=== PATIENT | male | born 1990 | race Caucasian/White ===

== ENCOUNTER 2017-07-28 03:17 | Emergency (ER) | payer OTHER ==
[2017-07-28 04:03] VITALS: TEMP 98.3; BMI 25.0
[2017-07-28 04:34] LABS: BASO # 0.1 # (0.1-1); BASO % 0.7 % (0-2.0); EOS # 0.3 # (0-4.5); EOS % 2.5 % (0-4.5); LYMPH # 3.3 (8-40); MCH 29.7 pg (25.7-33.7); MCHC 33.4 g/dl (32.0-35.9); MEAN CELL VOLUME 88.9 fl (80-96); MEAN PLT VOLUME 8.7 fl (7.5-11.1); MONO # 1.3 # (3.8-10.2); NEUT # 6.6 # (42.8-82.8); PLATELET COUNT 328 K/MM3 (134-434); WHITE BLOOD COUNT 11.7 K/mm3 (4.0-10.0)
--- NOTE | 2017-07-28 04:44 | PDOC ---
History of Present Illness - General Chief Complaint: Chest Pain Stated Complaint: CHEST DISCOMFORT Time Seen by Provider: 07/28/17 03:30 - History of Present Illness Initial Comments: 07/28/17 04:24 Pt is a 27 M with no significant PMH who presents to ED with chest pain. Pt states this pain is sharp and nonradiating. It has been ongoing for 1 hour. Pt states he's had this pain before, but it usually lasts 2-3 sec. The pain is not associated with activity. Pt states it usually occurs when he's lying down in bed at night and that it happens abut once per week. Notably, pt has seen Dr. Bryan as an outpt for the same complaint. Pt states he had a property assessment monitor placed for 2 weeks and had a cardiac echo done but does not have the results of either study yet. He came to ED tonight because the pain typically lasts a few seconds and has been persistent tonight. Past History - Past Medical History Allergies/Adverse Reactions: Allergies Allergy/AdvReac Type Severity Reaction Status Date / Time No Known Allergies Allergy Verified 07/28/17 04:00 COPD: No - Suicide/Smoking/Psychosocial Hx Smoking History: Never smoked Have you smoked in the past 12 months: No Information on smoking cessation initiated: No Hx Alcohol Use: No Drug/Substance Use Hx: No Review of Systems - Review of Systems Able to Perform ROS?: Yes Is the patient limited Georgian proficient: No Constitutional: Yes: Symptoms Reported. No: Chills, Diaphoresis, Fever, Night Sweats, Weakness HEENTM: Yes: Symptoms Reported. No: Blurred Vision, Double Vision Respiratory: Yes: Symptoms reported. No: Cough, Orthopnea, Shortness of Breath , Stridor, Wheezing Cardiac (ROS): Yes: Symptoms Reported, Chest Pain, Palpitations (occasional. Not associated with this event). No: Edema, Irregular Heart Rate, Syncope, Chest Tightness ABD/GI: Yes: Symptoms Reported. No: Abdominal Distended, Constipated, Diarrhea , Poor Fluid Intake : Yes: Symptoms Reported. No: Burning, Dysuria, Discharge Musculoskeletal: Yes: Symptoms Reported. No: Back Pain, Joint Pain Integumentary: Yes: Symptoms Reported. No: Erythema, Flushing Neurological: Yes: Symptoms reported. No: Headache, Numbness, Tingling, Tremors *Physical Exam - Vital Signs Last Vital Signs Temp Pulse Resp BP Pulse Ox 98.3 F 75 16 126/73 100 07/28/17 04:01 07/28/17 04:01 07/28/17 04:01 07/28/17 04:01 07/28/17 04:01 - Physical Exam General Appearance: Yes: Nourished, Appropriately Dressed. No: Apparent Distress HEENT: positive: EOMI, BRAN, Normal ENT Inspection, Normal Voice, Pharynx Normal. negative: Pale Conjunctivae Neck: positive: Trachea midline, Normal Thyroid, Supple. negative: Tender, Carotid bruit Respiratory/Chest: positive: Lungs Clear, Normal Breath Sounds. negative: Chest Tender, Respiratory Distress, Accessory Muscle Use Cardiovascular: positive: Regular Rhythm, Regular Rate, S1, S2. negative: Edema , JVD, Murmur Vascular Pulses: Dorsalis-Pedis (R): 2+, Doralis-Pedis (L): 2+ Gastrointestinal/Abdominal: positive: Normal Bowel Sounds, Flat, Soft. negative : Tender, Organomegaly Musculoskeletal: positive: Normal Inspection. negative: CVA Tenderness Extremity: positive: Normal Capillary Refill, Normal Inspection, Normal Range of Motion ED Treatment Course - LABORATORY CBC & Chemistry Diagram: 07/28/17 04:28 07/28/17 04:28 - RADIOLOGY Radiology Studies Ordered: Category Date Time Status CXRPORT [CHEST X-RAY PORTABLE*] [RAD] Stat Radiology 07/28/17 04:21 Ordered Medical Decision Making - Medical Decision Making 07/28/17 04:46 Pt is a 27 y/o M with no significant PMH who presents to ED with chest pain. This pain comes about in the setting of a cardiac workup outpatient. -r/o cardiac event -EKG -Troponin -CBC -CMP -CXR *DC/Admit/Observation/Transfer Diagnosis at time of Disposition: Chest pain Qualifiers: Chest pain type: chest pain on breathing Qualified Code(s): R07.1 - Chest pain on breathing; R07.81 - Pleurodynia - Discharge Dispostion Disposition: HOME Condition at time of disposition: Good - Referrals Referrals: Tavon Kiran MD [Primary Care Provider] - - Patient Instructions Additional Instructions: Please make sure you take all your prescription medications as directed. Please follow up with Dr. Bryan within 2-3 days. If your symptoms worsen or if you develop new symptoms, please return to the emergency department. - Post Discharge Activity
[2017-07-28 05:01] LABS: ALBUMIN 3.7 g/dl (3.4-5.0); ALK PHOS 87 U/L (45-117); ANION GAP 10 (8-16); BILIRUBIN,TOTAL 0.3 mg/dL (0.2-1.0); CALCIUM 8.6 mg/dL (8.5-10.1); CO2 24 mmol/L (21-32); CPK 216 IU/L (39-308); CREATININE 0.8 mg/dL (0.7-1.3); GLUCOSE,RANDOM 89 mg/dL (74-106); SGOT/AST 17 U/L (15-37); SGPT/ALT 25 U/L (12-78); TOT PROT 7.1 g/dl (6.4-8.2)
[2017-07-28 05:02] LABS: TROPONIN I < 0.02 ng/ml (0.00-0.05)
--- NOTE | 2017-07-28 05:34 | PDOC ---
Attending Attestation - Resident Resident Name: Luis Felipe Chadwick - ED Attending Attestation I have performed the following: I have examined & evaluated the patient, The case was reviewed & discussed with the resident, I agree w/resident's findings & plan, Exceptions are as noted - HPI HPI: 07/28/17 05:12 27 M with no PMH presents to ER with intermittent L sided chest pain. Pt states that he has been having palpitations on and off for the past several weeks and is followed by a accountant systems. He states that he sometimes gets L sided chest pain as well but not usually at the same time as the palpitations. Today, he states that he experienced a particularly intense and long episode of the chest pain. It was not exertional, not pleuritic. The pain has since subsided. Pt denies any SOB. Denies palpitations. Denies leg swelling, no recent travel/ immobilization. No h/o DVT/PE. - Physicial Exam PE: 07/28/17 05:56 "GENERAL: Awake, alert, and fully oriented, in no acute distress HEAD: No signs of trauma EYES: PERRLA, EOMI, sclera anicteric, conjunctiva clear ENT: Auricles normal inspection, hearing grossly normal, nares patent, oropharynx clear without exudates. Moist mucosa NECK: Nontender, no stepoffs, Normal ROM, supple, no lymphadenopathy, JVD, or masses LUNGS: Breath sounds equal, clear to auscultation bilaterally. No wheezes, and no crackles HEART: Regular rate and rhythm, normal S1 and S2, no murmurs, rubs or gallops ABDOMEN: Soft, nontender, normoactive bowel sounds. No guarding, no rebound. No masses EXTREMITIES: Normal range of motion, no edema. No clubbing or cyanosis. No cords, erythema, or tenderness NEUROLOGICAL: Cranial nerves II through XII intact. 5/5 strength and sensation in all extremities, Normal speech, normal gait SKIN: Warm, Dry, normal turgor, no rashes or lesions noted. " - Medical Decision Making 07/28/17 05:57 27 M with atypical chest pain. EKG is nonischemic, making ACS unlikely. Pt with no PE risk factors, PERC score 0. Pain likely msk in etiology. - Labs, trop - CXR Heart Score/ECG Review - History History: Slightly suspicious - Electrocardiogram EKG: Normal - Age Age: </= 45 - Risk Factors Based on the list above the patient has:: No risk factors known - Troponin Troponin: </= normal limit - Score Heart Score - Total: 0 - ECG Impressions Comment:: 07/28/17 05:57 NSR, no JIM/STDs, no TWIs, axis wnl, intervals wnl
[2017-07-28 06:31] VITALS: BP 122/73; PULSE 86
--- NOTE | 2017-07-28 13:08 | EKG ---
Test Reason : Blood Pressure : / mmHG Vent. Rate : 069 BPM Atrial Rate : 069 BPM P-R Int : 168 ms QRS Dur : 112 ms QT Int : 408 ms P-R-T Axes : 053 051 043 degrees QTc Int : 437 ms NORMAL SINUS RHYTHM RSR' OR QR PATTERN IN V1 SUGGESTS RIGHT VENTRICULAR CONDUCTION DELAY BORDERLINE ECG NO PREVIOUS ECGS AVAILABLE Confirmed by MD Rob Daniel ([id number]) on 07/28/2017 1:07:54 PM Referred By: Confirmed By:Segundo Rob MD
== END 2017-07-28 06:33 | disposition home or self-care (01) ==
LOC: JER 03:17
DX: R07.1 Chest pain on breathing (principal); R07.81 Pleurodynia
CPT/HCPCS: 36415; 71010-TC; 80053; 82550; 82553; 84484; 85025; 93005; 93010; 99281-25

== ENCOUNTER 2017-09-16 11:00 | Emergency (ER) | payer OTHER ==
[2017-09-16 11:52] VITALS: BP 117/66; PULSE 97; TEMP 98.1; BMI 29.8
[2017-09-16] MEDS ORDERED: ALBUTEROL SO4 2.5/IPRATROPIUM 0.5 INH SOL 3 ML VIAL.NEB. NEB ONE ×2 (13:03→13:05)
--- NOTE | 2017-09-16 13:03 | PDOC ---
History of Present Illness - General Chief Complaint: Cold Symptoms Stated Complaint: COUGH, BODYACHES Time Seen by Provider: 09/16/17 12:33 History Source: Patient Exam Limitations: No Limitations - History of Present Illness Initial Comments: 09/16/17 13:43 c/o sore throat , cough body aches for 5 days no fever no chills no vomiting or diarrhea. Past History - Past Medical History Allergies/Adverse Reactions: Allergies Allergy/AdvReac Type Severity Reaction Status Date / Time No Known Allergies Allergy Verified 09/16/17 11:47 Home Medications: Ambulatory Orders NK [No Known Home Medication] 09/16/17 COPD: No - Suicide/Smoking/Psychosocial Hx Smoking History: Never smoked Have you smoked in the past 12 months: No Information on smoking cessation initiated: No Hx Alcohol Use: No Drug/Substance Use Hx: No Substance Use Type: Alcohol Respiratory Specific PMHX - Complaint Specific PMHX Angina: No Bronchitis: No Pneumonia: No Pulmonary Embolus: No TB (Tuberculosis): No Review of Systems - Review of Systems Able to Perform ROS?: Yes Is the patient limited Kuwaiti proficient: No Constitutional: No: Symptoms Reported HEENTM: Yes: Symptoms Reported, Nose Congestion, Throat Pain Respiratory: Yes: Cough Cardiac (ROS): No: Symptoms Reported ABD/GI: No: Symptoms Reported : No: Symptoms Reported Musculoskeletal: No: Symptoms Reported Integumentary: No: Symptoms Reported Neurological: No: Symptoms reported *Physical Exam - Vital Signs Last Vital Signs Temp Pulse Resp BP Pulse Ox 98.1 F 97 H 20 117/66 98 09/16/17 11:47 09/16/17 11:47 09/16/17 11:47 09/16/17 11:47 09/16/17 11:47 - Physical Exam General Appearance: Yes: Nourished, Appropriately Dressed HEENT: positive: EOMI, BRAN, Normal ENT Inspection, TMs Normal, Pharynx Normal Neck: positive: Supple. negative: Tender Respiratory/Chest: positive: Lungs Clear, Normal Breath Sounds. negative: Chest Tender Cardiovascular: positive: Regular Rhythm, Regular Rate Gastrointestinal/Abdominal: negative: Normal Bowel Sounds Lymphatic: negative: Adenopathy Musculoskeletal: positive: Normal Inspection Extremity: positive: Normal Capillary Refill, Normal Inspection, Normal Range of Motion Integumentary: positive: Normal Color, Dry, Warm Neurologic: positive: Fully Oriented, Alert, Normal Mood/Affect, Normal Response , Motor Strength 12/05 Medical Decision Making - Medical Decision Making 09/16/17 13:44 cc: cough sore throat body aches non toxic well appearing male no distress will check for strep pt drinking iced tea negative strep 09/16/17 13:52 *DC/Admit/Observation/Transfer Diagnosis at time of Disposition: Influenza-like illness - Discharge Dispostion Disposition: HOME Condition at time of disposition: Good - Referrals Referrals: Tavon Kiran MD [Primary Care Provider] - - Patient Instructions Printed Discharge Instructions: DI for Common Cold Additional Instructions: drink pleanty of fluids to stay well hydrated take tylenol or motrin for pain or fever follow with your doctor for follow up - Post Discharge Activity
== END 2017-09-16 13:56 | disposition home or self-care (01) ==
LOC: JERFT 11:00
PROC: 3E0F7GC Introduction of Other Therapeutic Substance into Respiratory Tract, Via Natural or Artificial Opening (ICD-10-PCS; principal; 2017-09-16)
DX: J11.1 Influenza due to unidentified influenza virus with other respiratory manifestations (principal)
CPT/HCPCS: 87070; 87430; 99281-25

== ENCOUNTER 2019-04-06 20:31 | Emergency (ER) | payer OTHER ==
[2019-04-06 20:48] VITALS: BP 123/79; PULSE 68; TEMP 98.2; BMI 29.0
--- NOTE | 2019-04-06 20:51 | PDOC ---
Rapid Medical Evaluation Chief Complaint: Sore Throat Time Seen by Provider: 04/06/19 20:48 Medical Evaluation: Allergies Allergy/AdvReac Type Severity Reaction Status Date / Time No Known Allergies Allergy Verified 09/16/17 11:47 Vital Signs Temp Pulse Resp BP Pulse Ox 98.2 F 68 19 123/79 98 04/06/19 20:46 04/06/19 20:46 04/06/19 20:46 04/06/19 20:46 04/06/19 20:46 04/06/19 20:49 I have performed a brief in-person evaluation of this patient. The patient presents with a chief complaint of: sore throat, cough Pertinent physical exam findings:stable and in NAD, non-focal I have ordered the following:strep The patient will proceed to the ED for further evaluation.
--- NOTE | 2019-04-06 21:26 | PDOC ---
History of Present Illness - General Chief Complaint: Sore Throat Stated Complaint: THROAT PAIN/LIGHTHEADED Time Seen by Provider: 04/06/19 20:48 - History of Present Illness Initial Comments: 04/06/19 21:26 29 y/o M w/o CM or systemic symptoms presents for evaluation of sore throat x1 month Past History - Past Medical History Allergies/Adverse Reactions: Allergies Allergy/AdvReac Type Severity Reaction Status Date / Time No Known Allergies Allergy Verified 09/16/17 11:47 Home Medications: Ambulatory Orders Cetirizine HCl [Zyrtec -] 10 mg PO DAILY #30 tablet 04/06/19 COPD: No - Suicide/Smoking/Psychosocial Hx Smoking History: Never smoked Have you smoked in the past 12 months: No Hx Alcohol Use: No Drug/Substance Use Hx: No Substance Use Type: Alcohol Review of Systems - Review of Systems Constitutional: No: Fever HEENTM: Yes: Throat Pain *Physical Exam - Vital Signs Last Vital Signs Temp Pulse Resp BP Pulse Ox 98.2 F 68 19 123/79 98 04/06/19 20:46 04/06/19 20:46 04/06/19 20:46 04/06/19 20:46 04/06/19 20:46 - Physical Exam Comments: 04/06/19 21:25 HEAD: NC/AT EYES: Conjuntiva clear Ears: Canals and TM's normal NOSE: No d/c THROAT: Moist mucous membrances, oral pharanx clear, uvula midline NECK: Supple without adenopathy CARDIAC: S1 S2 LUNGS: CTA Full and Equal breath sounds ABDOMEN: Soft NT ND MS: Full ROM in all joints without edema NEUROLOGIC: No gross sensory or motor deficits, NVID SKIN: Normal color and temperature no lesions or rashes Medical Decision Making - Medical Decision Making 04/06/19 21:24 Benign examination, sore throat x1 month most likely due to allergies. *DC/Admit/Observation/Transfer Diagnosis at time of Disposition: Acute pharyngitis, Seasonal allergies - Discharge Dispostion Disposition: HOME Condition at time of disposition: Stable Decision to Admit order: No - Prescriptions Prescriptions: Cetirizine HCl [Zyrtec -] 10 mg PO DAILY #30 tablet - Referrals Referrals: Tavon Kiran MD [Primary Care Provider] - - Patient Instructions Additional Instructions: Please start the Zyrtec and take the medication as directed. Return to the Emergency Room should symptoms worsen. Without fail, follow up with your primary care physician. Your rapid strep was negative, a culture was sent and should you require antibiotics we will call you. - Post Discharge Activity
== END 2019-04-06 21:34 | disposition home or self-care (01) ==
LOC: JERFT 20:31
DX: J02.9 Acute pharyngitis, unspecified (principal); J30.2 Other seasonal allergic rhinitis
CPT/HCPCS: 87070; 87880; 99281-25

== ENCOUNTER 2021-01-08 18:08 | Emergency (ER) | payer OTHER ==
[2021-01-08 18:13] VITALS: BP 126/77; PULSE 70; TEMP 98.4; BMI 29.4
[2021-01-08] MEDS ORDERED: KETOROLAC TROMETHAMINE 30 MG/1 ML VIAL IM ONE (18:54)
[2021-01-08] MEDS ORDERED: KETOROLAC TROMETHAMINE 30 MG/1 ML VIAL ONE (19:16)
== END 2021-01-08 19:32 | disposition home or self-care (01) ==
LOC: JER 18:08
PROC: 3E0233Z Introduction of Anti-inflammatory into Muscle, Percutaneous Approach (ICD-10-PCS; principal; 2021-01-08)
DX: M94.0 Chondrocostal junction syndrome [Tietze] (principal)
CPT/HCPCS: 93005; 93010; 99284-25

== ENCOUNTER 2021-12-03 01:42 | Emergency (ER) | payer OTHER ==
[2021-12-03 02:08] VITALS: BP 127/87; PULSE 82; TEMP 98.1; BMI 32.4
== END 2021-12-03 03:18 | disposition home or self-care (01) ==
LOC: JER 01:42
DX: R05.9 Cough, unspecified (principal)
CPT/HCPCS: 99283-25